=== PATIENT | female | born 1965 | race Caucasian/White ===

== ENCOUNTER 2017-02-03 16:57 | Emergency (ER) | payer SELFPAY ==
--- NOTE | 2017-02-03 17:58 | C.PDOC ---
History Of Present Illness Patient is a 51 y/o female, with no significant PMHx, presents to ED for evaluation of intermittent episodes of right sided lower back pain in the last 2 days. Notes having an episode of back pain 2 days ago and again last night. Denies having any pain at this time. Pain was described as dull. Otherwise, denies any fall, trauma, chest pain, shortness of breath, fever, chills, nausea , vomiting, diarrhea, bowel or bladder incontinence/retention, saddle anesthesia , paresthesia, focal weakness, sensory deficit, gait dysfunction, hematuria or dysuria. No radiation of pain into lower extremities. LMP: 03/15/16. Time Seen by Provider: 02/03/17 17:24 Chief Complaint (Nursing): Back Pain History Per: Patient History/Exam Limitations: no limitations Onset/Duration Of Symptoms: Days (2) Current Symptoms Are (Timing): Still Present Quality Of Discomfort: Dull Previous Symptoms: Back Pain. denies: Prior Injury Associated Symptoms: None. denies: Incontinence, New Weakness, New Numbness Exacerbating Factor(s): Nothing Recent travel outside of the [place]: No Additional History Per: Patient Past Medical History Reviewed: Historical Data, Nursing Documentation, Vital Signs Vital Signs: Last Vital Signs Temp 99.1 F 02/03/17 18:29 Pulse 90 02/03/17 18:29 Resp 17 02/03/17 18:29 BP 149/83 02/03/17 18:29 Pulse Ox 97 02/03/17 18:29 - Medical History PMH: No Chronic Diseases Family History: States: Unknown Family Hx - Social History Hx Alcohol Use: No Hx Substance Use: No - Immunization History Hx Tetanus Toxoid Vaccination: No Hx Influenza Vaccination: No Hx Pneumococcal Vaccination: No Review Of Systems Except As Marked, All Systems Reviewed And Found Negative. (as per HPI) Physical Exam - Physical Exam Appears: Non-toxic, No Acute Distress Skin: Normal Color, Warm, Dry Head: Atraumatic, Normacephalic Eye(s): bilateral: Normal Inspection Neck: Normal ROM, No Paracervical Tenderness, Supple Chest: Symmetrical Cardiovascular: Rhythm Regular, No Murmur Respiratory: Normal Breath Sounds, No Rales, No Rhonchi, No Wheezing Gastrointestinal/Abdominal: Bowel Sounds, Soft, No Tenderness, No Distention, No Guarding Back: Normal Inspection, No CVA Tenderness, No Vertebral Tenderness, No Decreased ROM, No Paraspinal Tenderness Extremity: Bilateral: Atraumatic, Hips Non-Tender, Normal Color And Temperature , Normal ROM Neurological/Psych: Oriented x3, Normal Speech Gait: Steady ED Course And Treatment O2 Sat by Pulse Oximetry: 99 (RA) Pulse Ox Interpretation: Normal Medical Decision Making Medical Decision Making: Impression: 51 y/o female presents with intermittent dull right lower back pain for the last 2 days. Plan: * Urinalysis * Reassess and disposition Progress note: UA shows LE and WBCs. On re-evaluation, patient is resting comfortably in no distress. She has no back pain, no fever, no bony tenderness, no numbness, no weakness, or abdominal pain. Patient is ambulatory in the emergency department with no signs of discomfort. Patient was advised to follow up with clinic and will discharge with Rx Bactrim Disposition Counseled Patient/Family Regarding: Diagnosis, Need For Followup, Rx Given - Disposition Referrals: [facility] [Outside] Disposition: HOME/ ROUTINE Disposition Time: 18:10 Condition: STABLE Additional Instructions: Seguimiento con la clnica en 2-5 lomas para la evaluacin adicional. [place] los medicamentos prescritos dos veces al da para la infeccin de orina. Regrese al servicio de urgencias en cualquier momento si los sntomas persisten o empeoran. Usted puede llamar al servicio de conserjera para cualquier ayuda [phone]. Prescriptions: Sulfamethoxazole/Trimethoprim [Bactrim DS 800 mg-160 mg] 1 tab PO BID #10 tab Instructions: Urinary Tract Infection in Women (DC) Forms: [employer] (Turkish) Print Language: TURKMEN - POA Present On Arrival: None - Clinical Impression Clinical Impression: UTI (urinary tract infection) - PA / [employer] / Resident Statement MD/DO has reviewed & agrees with the documentation as recorded. - Scribe Statement The provider has reviewed the documentation as recorded by the Scribe Neli Cunha All medical record entries made by the Scribe were at my direction and personally dictated by me. I have reviewed the chart and agree that the record accurately reflects my personal performance of the history, physical exam, medical decision making, and the department course for this patient. I have also personally directed, reviewed, and agree with the discharge instructions and disposition.
[2017-02-03 18:06] LABS: RBC URINE 4 /hpf (0-3); URINE BACTERIA OCC (<OCC); URINE BILIRUBIN NEGATIVE (NEGATIVE); URINE BLOOD 1+ (NEGATIVE); URINE COLOR Straw (YELLOW); URINE GLUCOSE (UA) NORMAL (Normal); URINE KETONE NEGATIVE (NEGATIVE); URINE LEUKOCYTE ESTERASE 1+ Leu/uL (Negative); URINE PROTEIN NEGATIVE (NEGATIVE); URINE UROBILINOGEN NORMAL mg/dL (0.2-1.0); WBC URINE 12 /hpf (0-5)
[2017-02-03 18:30] VITALS: BP 149/83; PULSE 90; RESP 17; TEMP 99.1
[2017-02-03 18:33] VITALS: O2SAT 99
== END 2017-02-03 18:30 | disposition home or self-care (01) ==
LOC: C.ER 16:57
DX: N39.0 Urinary tract infection, site not specified (principal)

== ENCOUNTER 2018-10-16 07:50 | Emergency (ER) | payer OTHER ==
[2018-10-16 08:01] VITALS: BP 147/82; PULSE 118; RESP 17; O2SAT 99
[2018-10-16] MEDS ORDERED: MethylPREDNISolone 40 mg Vial IM STA (08:15)
--- NOTE | 2018-10-16 08:18 | C.PDOC ---
Time Seen by Provider: 10/16/18 08:05 Chief Complaint (Nursing): Abnormal Skin Integrity Past Medical History Vital Signs: Last Vital Signs Temp Pulse 118 H 10/16/18 07:58 Resp 17 10/16/18 07:58 BP 147/82 10/16/18 07:58 Pulse Ox 99 10/16/18 07:58 Primary Care Provider: FAMILY PROVIDER,NO - Medical History PMH: HTN Family History: States: Unknown Family Hx - Social History Hx Alcohol Use: No Hx Substance Use: No - Immunization History Hx Tetanus Toxoid Vaccination: No Hx Influenza Vaccination: No Hx Pneumococcal Vaccination: No ED Course And Treatment O2 Sat by Pulse Oximetry: 99 Disposition Counseled Patient/Family Regarding: Diagnosis, Need For Followup - Disposition Referrals: [facility] at [facility] [place] [Outside] Disposition: HOME/ ROUTINE Disposition Time: 08:16 Condition: STABLE Prescriptions: Fexofenadine HCl [NadiaNf] 180 mg PO DAILY 7 Days tab Methylprednisolone [Medrol Dose Pack (21 tabs)] 4 mg PO DAILY #21 mg Instructions: Vitiligo (DC), Skin Rash Forms: [facility] (Sierra Leonean), Gen Discharge Inst Maori Print Language: SAMI - POA Present On Arrival: None - Clinical Impression Clinical Impression: Allergic reaction
--- NOTE | 2018-10-16 08:20 | C.PDOC ---
History Of Present Illness 53 y/o female presents to ED with chief complaint of facial rash. Patient states that her lower lip and skin around her nose were red and swollen since this morning, and feels itchy. Denies any medication or different food exposure. Also states she noticed for the past week that her face is getting some discoloration, white around her eyes. Denies difficulty breathing or swallowing. Time Seen by Provider: 10/16/18 08:05 Chief Complaint (Nursing): Abnormal Skin Integrity History Per: Patient History/Exam Limitations: no limitations Onset/Duration Of Symptoms: Days Current Symptoms Are (Timing): Still Present Past Medical History Reviewed: Historical Data, Nursing Documentation, Vital Signs Vital Signs: Last Vital Signs Temp Pulse 118 H 10/16/18 07:58 Resp 17 10/16/18 07:58 BP 147/82 10/16/18 07:58 Pulse Ox 99 10/16/18 07:58 Primary Care Provider: FAMILY PROVIDER,NO - Medical History PMH: HTN Surgical History: No Surg Hx Family History: States: No Known Family Hx - Social History Hx Tobacco Use: No Hx Alcohol Use: No Hx Substance Use: No - Immunization History Hx Tetanus Toxoid Vaccination: No Hx Influenza Vaccination: No Hx Pneumococcal Vaccination: No Review Of Systems Except As Marked, All Systems Reviewed And Found Negative. Constitutional: Negative for: Fever, Chills ENT: Positive for: Other (swelling of the lower lip and surrounding area of the nose). Negative for: Throat Swelling Respiratory: Negative for: Shortness of Breath Skin: Positive for: Rash Physical Exam - Physical Exam Appears: Non-toxic, No Acute Distress Skin: Warm, Dry, Other (mild erythema in face) Head: Atraumatic, Normacephalic Eye(s): bilateral: Normal Inspection Nose: Normal Oral Mucosa: Moist Tongue: Normal Appearing Lips: Swelling (mild swelling in lower lip) Throat: Normal Neck: Supple Cardiovascular: Rhythm Regular Respiratory: Normal Breath Sounds Extremity: Bilateral: Atraumatic, Normal Color And Temperature, Normal ROM Neurological/Psych: Oriented x3, Normal Speech ED Course And Treatment O2 Sat by Pulse Oximetry: 99 (RA) Pulse Ox Interpretation: Normal Medical Decision Making Medical Decision Making: Plan: --Benadryl 25 mg PO --Solumedrol 125 mg IM Disposition - Disposition Referrals: [facility] at [facility] [Outside] Disposition: HOME/ ROUTINE Disposition Time: 08:30 Condition: STABLE Prescriptions: Fexofenadine HCl [NadiaNf] 180 mg PO DAILY 7 Days tab Methylprednisolone [Medrol Dose Pack (21 tabs)] 4 mg PO DAILY #21 mg Instructions: Skin Rash, Vitiligo (DC) Forms: Gen Discharge Inst Kenyan, [employer] (Jordanian) Print Language: PERSIAN - Clinical Impression Clinical Impression: Allergic reaction - Scribe Statement The provider has reviewed the documentation as recorded by the Marli Garcia Provider Attestation: All medical record entries made by the Marli were at my direction and personally dictated by me. I have reviewed the chart and agree that the record accurately reflects my personal performance of the history, physical exam, medical decision making, and the department course for this patient. I have also personally directed, reviewed, and agree with the discharge instructions and disposition.
== END 2018-10-16 08:31 | disposition home or self-care (01) ==
LOC: C.ER 07:50
DX: T78.40XA Allergy, unspecified, initial encounter (principal)
CPT/HCPCS: 96372; 99283; J2920